=== PATIENT | female | born 1950 | race Caucasian/White ===

== ENCOUNTER 2020-08-27 11:35 | Inpatient (IN) | payer OTHER, MEDICARE ==
[~2020-08-27] VITALS: Ht 167.6 cm; Wt 69.9 kg
[~2020-08-27 11:35] MED LIST: CODE120S2 PO
[2020-08-27 13:01] LABS: BASOPHILS % (AUTO) 0.2 % (0-1); EOSINOPHILS # (AUTO) 0.4 X10'3 (0-0.9); EOSINOPHILS % (AUTO) 2.3 % (0-6); HEMATOCRIT 47.5 % (35.0-45.0); HEMOGLOBIN 15.5 g/dl (12.0-16.0); LYMPHOCYTES # (AUTO) 1.9 X10'3 (1.1-4.8); LYMPHOCYTES % (AUTO) 10.6 % (21-51); MEAN CORPUSCULAR HEMOGLOBIN 29.5 PG (27.0-31.0); MEAN CORPUSCULAR HGB CONC 32.6 g/dL (33.0-36.5); MEAN CORPUSCULAR VOLUME 90.7 FL (78-98); MEAN PLATELET VOLUME 8.4 FL (7.4-10.4); MONOCYTES # (AUTO) 1.3 X10'3 (0-0.9); MONOCYTES % (AUTO) 7.3 % (2-12); NEUTROPHILS % (AUTO) 79.6 % (42-75); PLATELET COUNT 282 X10'3 (140-440); RED BLOOD COUNT 5.24 X10'6 (4.20-5.60); RED CELL DISTRIBUTION WIDTH 14.7 % (11.5-14.5); WHITE BLOOD COUNT 17.6 X10'3 (4.5-11.0)
[2020-08-27 13:22] LABS: ALANINE AMINOTRANSFERASE 49 U/L (12-78); ALBUMIN 3.6 G/DL (3.4-5.0); ALBUMIN/GLOBULIN RATIO 0.9 (1.1-1.5); ALKALINE PHOSPHATASE 118 IU/L (46-116); ANION GAP 8 (8-16); ASPARTATE AMINO TRANSFERASE 32 U/L (10-37); BLOOD UREA NITROGEN 19 MG/DL (7-18); BUN/CREATININE RATIO 17.6 (6.6-38.0); CALCIUM 9.3 MG/DL (8.5-10.1); CHLORIDE 105 MMOL/L (99-107); CREATININE 1.08 MG/DL (0.40-0.90); GLUCOSE 107 MG/DL (70-104); POTASSIUM 4.2 MMOL/L (3.5-5.1); SODIUM 140 MMOL/L (135-145); TOTAL CARBON DIOXIDE 27.1 MMOL/L (24-32); TOTAL PROTEIN 7.5 G/DL (6.4-8.2); eGFR 50 ML/MIN
[2020-08-27] MEDS ORDERED: acetaminophen 325mg tablet PO STA (14:36)
[2020-08-27] MEDS ORDERED: methylPREDNISolone sod succ 125mg/2ml vial IV ONE (14:40)
[2020-08-27] MEDS ORDERED: CefTRIAXone 2gm/D5W 50ml BAG 50 ML IV ONE (14:40)
[2020-08-27] MEDS ORDERED: albuterol 2.5 MG/3 ML nebule CONTNEB PRN (14:40)
[2020-08-27 15:20] LABS: D-DIMER 0.22 MG/L FEU (0-0.50)
[2020-08-27] MEDS ORDERED: azithromycin/NS 500mg/250ml 250 ML IV ONE (16:50)
[2020-08-27] MEDS ORDERED: LEVO50TA8 PO (17:19)
[2020-08-27] MEDS ORDERED: ATOR40TA71 PO (17:19)
[2020-08-27] MEDS ORDERED: LOSA50TA64 PO (17:19)
[2020-08-27] MEDS ORDERED: TIOT4MIS5 PO (17:19)
[2020-08-27] MEDS ORDERED: DULO60CA45 PO (17:19)
[2020-08-27] MEDS ORDERED: MONT10TA21 PO (17:19)
[2020-08-27] MEDS ORDERED: FLUT1AER PO (17:19)
[2020-08-27] MEDS ORDERED: HYDROcodone/acetaminophen 5mg/325mg tablet PO PRN (17:20)
[2020-08-27] MEDS ORDERED: ondansetron/PF 4mg/2ml inj IV PRN (17:20)
[2020-08-27] MEDS ORDERED: mag hydrox/Alum hydrox/simeth 30ml oral suspension PO PRN (17:20)
[2020-08-27] MEDS ORDERED: magnesium hydroxide 30ml (MOM) UD suspension PO PRN (17:20)
[2020-08-27] MEDS ORDERED: acetaminophen 325mg tablet PO PRN ×2 (17:20)
[2020-08-27] MEDS ORDERED: morphine 2 MG/ML inj. syringe IV PRN ×2 (17:20)
--- NOTE | 2020-08-27 18:06 | NUR ---
Patient in room ED 16. I have received report from RAUL Ferreira and had the opportunity to ask questions and assume patient care.
[2020-08-27 19:00] VITALS: BP 144/52
--- NOTE | 2020-08-27 23:37 | NUR ---
PAGER ID: [phone] MESSAGE: [id number] Violetta edward. Pt admitted with possible PNA. Is saline locked w/o abx. Lactic 1.8. Nebulizer treatments at home, none here. Would you like additional orders? RAUL Nunezbusiness development intern [phone]
[2020-08-28] VITALS: BP 148/57
--- NOTE | 2020-08-28 00:16 | NUR ---
PAGER ID: [phone] MESSAGE: [id number] Violetta Munoz. Please call in regards to this patient. Thank you. RAUL Nunezwind farm designer [phone]
[2020-08-28] MEDS: zolpidem 5mg tablet PO PRN ×2 (02:29→20:44)
[2020-08-28] MEDS: ipratropium/albuterol 3ml nebule NEB SCH ×4 (02:40→20:11)
[2020-08-28 02:47] LABS: ALBUMIN 3.2 G/DL (3.4-5.0); ANION GAP 13 (8-16); BLOOD UREA NITROGEN 21 MG/DL (7-18); BUN/CREATININE RATIO 18.9 (6.6-38.0); CHLORIDE 108 MMOL/L (99-107); CREATININE 1.11 MG/DL (0.40-0.90); GLUCOSE 204 MG/DL (70-104); POTASSIUM 4.3 MMOL/L (3.5-5.1); SODIUM 143 MMOL/L (135-145); TOTAL CARBON DIOXIDE 22.5 MMOL/L (24-32); eGFR 48 ML/MIN
[2020-08-28 02:50] LABS: BASOPHILS % (AUTO) 0.1 % (0-1); EOSINOPHILS % (AUTO) 0 % (0-6); HEMATOCRIT 42.7 % (35.0-45.0); HEMOGLOBIN 14.1 g/dl (12.0-16.0); LYMPHOCYTES # (AUTO) 0.7 X10'3 (1.1-4.8); LYMPHOCYTES % (AUTO) 5.3 % (21-51); MEAN CORPUSCULAR HEMOGLOBIN 29.7 PG (27.0-31.0); MEAN CORPUSCULAR HGB CONC 33.1 g/dL (33.0-36.5); MEAN CORPUSCULAR VOLUME 89.7 FL (78-98); MEAN PLATELET VOLUME 8.7 FL (7.4-10.4); MONOCYTES # (AUTO) 0.2 X10'3 (0-0.9); MONOCYTES % (AUTO) 1.8 % (2-12); NEUTROPHILS # (AUTO) 12.5 X10'3 (1.8-7.7); NEUTROPHILS % (AUTO) 92.8 % (42-75); PLATELET COUNT 241 X10'3 (140-440); RED BLOOD COUNT 4.76 X10'6 (4.20-5.60); RED CELL DISTRIBUTION WIDTH 14.7 % (11.5-14.5); WHITE BLOOD COUNT 13.4 X10'3 (4.5-11.0)
--- NOTE | 2020-08-28 06:33 | NUR ---
Problems reprioritized. Patient report given, questions answered & plan of care reviewed with RAUL Vegas.
--- NOTE | 2020-08-28 06:35 | NUR ---
Patient in room [facility] 360. I have received report from Mayra Escoto RN and had the opportunity to ask questions and assume patient care.
[2020-08-28 07:00] VITALS: BP 120/62
[2020-08-28] MEDS: enoxaparin 40mg/0.4ml syringe SUBCUT SCH (07:35)
[2020-08-28] MEDS: CefTRIAXone/D5W-Rocephin 1gm 50 ML IV SCH (07:35)
[2020-08-28] MEDS: atorvastatin 20mg tablet PO SCH (07:36)
[2020-08-28] MEDS: losartan 50mg tablet PO SCH (07:36)
[2020-08-28] MEDS: azithromycin 250mg tablet PO SCH (07:36)
[2020-08-28] MEDS: duloxetine 30mg CAPSULE.DR PO SCH (07:36)
[2020-08-28] MEDS: montelukast 10mg tablet PO SCH (07:37)
[2020-08-28] MEDS: levoTHYROXINE 25mcg tablet PO SCH (07:37)
[2020-08-28] MEDS: budesonide 0.5mg/2ml UD nebule IH SCH ×2 (07:37→20:11)
[2020-08-28] MEDS: methylPREDNISolone sod succ 125mg/2ml vial IV SCH ×2 (07:38→20:36)
[2020-08-28] MEDS ORDERED: non-formulary drug (Tiotropium Bromide (Spiriva Respimat) 2 PUFF) PO SCH (08:00)
[2020-08-28] MEDS ORDERED: non-formulary drug (Fluticasone/Vilanterol (Breo Ellipta 100-25 Mcg INH) 1 PUFF) PO SCH (08:00)
[2020-08-28] MEDS ORDERED: albuterol 2.5 MG/3 ML nebule NEB SCH (08:00)
[2020-08-28 09:28] LABS: ABG BASE EXCESS -2.9 mmol/L (-2.0-2.0); ABG HCO3 21.4 mmol/L (22.0-26.0); ABG OXYGEN SATURATION 95.1 % (94-97); ABG PCO2 (T) 35.9 mmHg (32.0-45.0); ABG PO2 (T) 72.8 mmHg (75.0-100.0); ALLEN'S TEST POSITIVE; FCOHb 0.1 % (0.0-3.9); FLOW 4 L/min; FMetHb 0.4 % (0.0-1.5); FO2Hb 94.6 % (94-97)
--- NOTE | 2020-08-28 09:31 | NUR ---
patient given IS and flutter valve. Rt tmts continue and ABG drawn per Dr Blanchard. . Awaiting sputum sample. patient remains on O2/4L. will continue to monitor.
--- NOTE | 2020-08-28 10:26 | NUR ---
Solumedrol given by primary RN and not Raymon ARAUJO from [facility]. Medication was scanned under SN profile.
[2020-08-28 11:01] VITALS: BP 115/48
--- NOTE | 2020-08-28 16:31 | NUR ---
patient c/o feeling constipated. MOM and prune juice administered will continue to monitor
[2020-08-28 18:00] VITALS: BP 141/79
--- NOTE | 2020-08-28 18:16 | NUR ---
daughter present with patient. No result at this time from "brown alejandro" ie MOM and prune juice. report given to Prudence RN
--- NOTE | 2020-08-28 18:51 | NUR ---
Patient in room [facility] 360. I have received report from RAUL Vegas and had the opportunity to ask questions and assume patient care. Addendum: 08/28/20 at 1852 by Yamile Dotson - Student REYES Amended: Links added.
[2020-08-28] MEDS: lactobacillus rhamnosus 10,000 MMU CELLS/CAPSULE PO SCH (20:35)
[2020-08-29 00:12] VITALS: BP 160/86
[2020-08-29] MEDS: ipratropium/albuterol 3ml nebule NEB SCH ×4 (02:25→20:36)
--- NOTE | 2020-08-29 05:54 | NUR ---
Student documentation: I have reviewed and agree with all interventions, assessments performed and documented by TERENCE STUDENT.
[2020-08-29 06:33] LABS: ALBUMIN 2.9 G/DL (3.4-5.0); ANION GAP 9 (8-16); BASOPHILS % (AUTO) 0 % (0-1); BLOOD UREA NITROGEN 30 MG/DL (7-18); BUN/CREATININE RATIO 30.9 (6.6-38.0); CALCIUM 8.6 MG/DL (8.5-10.1); CHLORIDE 110 MMOL/L (99-107); CREATININE 0.97 MG/DL (0.40-0.90); EOSINOPHILS % (AUTO) 0 % (0-6); GLUCOSE 146 MG/DL (70-104); HEMATOCRIT 38.1 % (35.0-45.0); HEMOGLOBIN 12.5 g/dl (12.0-16.0); LYMPHOCYTES # (AUTO) 0.9 X10'3 (1.1-4.8); LYMPHOCYTES % (AUTO) 5.1 % (21-51); MEAN CORPUSCULAR HEMOGLOBIN 29.3 PG (27.0-31.0); MEAN CORPUSCULAR HGB CONC 32.7 g/dL (33.0-36.5); MEAN CORPUSCULAR VOLUME 89.8 FL (78-98); MEAN PLATELET VOLUME 8.7 FL (7.4-10.4); MONOCYTES # (AUTO) 0.5 X10'3 (0-0.9); MONOCYTES % (AUTO) 2.7 % (2-12); NEUTROPHILS # (AUTO) 17.1 X10'3 (1.8-7.7); NEUTROPHILS % (AUTO) 92.2 % (42-75); PLATELET COUNT 256 X10'3 (140-440); RED BLOOD COUNT 4.25 X10'6 (4.20-5.60); RED CELL DISTRIBUTION WIDTH 14.6 % (11.5-14.5); SODIUM 143 MMOL/L (135-145); TOTAL CARBON DIOXIDE 24.3 MMOL/L (24-32); WHITE BLOOD COUNT 18.5 X10'3 (4.5-11.0); eGFR 56 ML/MIN
[2020-08-29 07:50] VITALS: BP 106/54
[2020-08-29] MEDS: budesonide 0.5mg/2ml UD nebule IH SCH ×2 (08:34→20:36)
[2020-08-29] MEDS: atorvastatin 20mg tablet PO SCH (09:36)
[2020-08-29] MEDS: CefTRIAXone/D5W-Rocephin 1gm 50 ML IV SCH (09:36)
[2020-08-29] MEDS: montelukast 10mg tablet PO SCH (09:37)
[2020-08-29] MEDS: lactobacillus rhamnosus 10,000 MMU CELLS/CAPSULE PO SCH ×2 (09:37→21:04)
[2020-08-29] MEDS: duloxetine 30mg CAPSULE.DR PO SCH (09:37)
[2020-08-29] MEDS: losartan 50mg tablet PO SCH (09:37)
[2020-08-29] MEDS: methylPREDNISolone sod succ 125mg/2ml vial IV SCH ×2 (09:38→21:04)
[2020-08-29] MEDS: azithromycin 250mg tablet PO SCH (09:38)
[2020-08-29] MEDS: enoxaparin 40mg/0.4ml syringe SUBCUT SCH (09:38)
[2020-08-29] MEDS: levoTHYROXINE 25mcg tablet PO SCH (09:56)
[2020-08-29 11:00] VITALS: BP 131/66
[2020-08-29 18:00] VITALS: BP 136/67
--- NOTE | 2020-08-29 18:07 | NUR ---
Problems reprioritized. Patient report given, questions answered & plan of care reviewed with RAUL PERRY.
--- NOTE | 2020-08-29 19:05 | NUR ---
Patient in room [facility] 360. I have received report from RAUL Lind and had the opportunity to ask questions and assume patient care. Addendum: 08/29/20 at 1905 by Yamile Dotson - Student REYES Amended: Links added.
[2020-08-29] MEDS: zolpidem 5mg tablet PO PRN (21:03)
[2020-08-30 00:13] VITALS: BP 128/74
[2020-08-30] MEDS: ipratropium/albuterol 3ml nebule NEB SCH ×3 (02:39→16:21)
--- NOTE | 2020-08-30 05:37 | NUR ---
Student documentation: I have reviewed and agree with all interventions, assessments performed and documented by TERENCE CARTER.
--- NOTE | 2020-08-30 05:37 | NUR ---
Student Medication Administration: For this medication-pass time frame, all medication were reviewed, dispensed, administered and documented per hospital policy by WALLKILLWILL NOBLES.
--- NOTE | 2020-08-30 06:10 | NUR ---
Problems reprioritized. Patient report given, questions answered & plan of care reviewed with RAUL Lind. Addendum: 08/30/20 at 0610 by Yamile Dotson - Steve CHAMBERS Amended: Links added.
--- NOTE | 2020-08-30 06:48 | NUR ---
Patient in room [facility] 360. I have received report from Yamile, student RN & Sara, RN and had the opportunity to ask questions and assume patient care.
[2020-08-30 07:01] LABS: BASOPHILS % (AUTO) 0 % (0-1); EOSINOPHILS % (AUTO) 0 % (0-6); HEMATOCRIT 40.7 % (35.0-45.0); HEMOGLOBIN 13.2 g/dl (12.0-16.0); LYMPHOCYTES # (AUTO) 0.8 X10'3 (1.1-4.8); MEAN CORPUSCULAR HEMOGLOBIN 29.1 PG (27.0-31.0); MEAN CORPUSCULAR HGB CONC 32.3 g/dL (33.0-36.5); MEAN CORPUSCULAR VOLUME 90.1 FL (78-98); MEAN PLATELET VOLUME 8.8 FL (7.4-10.4); MONOCYTES # (AUTO) 0.6 X10'3 (0-0.9); MONOCYTES % (AUTO) 4.3 % (2-12); NEUTROPHILS # (AUTO) 12.2 X10'3 (1.8-7.7); NEUTROPHILS % (AUTO) 89.7 % (42-75); PLATELET COUNT 289 X10'3 (140-440); RED BLOOD COUNT 4.52 X10'6 (4.20-5.60); RED CELL DISTRIBUTION WIDTH 14.6 % (11.5-14.5); WHITE BLOOD COUNT 13.6 X10'3 (4.5-11.0)
[2020-08-30] MEDS: budesonide 0.5mg/2ml UD nebule IH SCH (07:05)
[2020-08-30 07:19] LABS: ANION GAP 11 (8-16); BLOOD UREA NITROGEN 34 MG/DL (7-18); BUN/CREATININE RATIO 36.6 (6.6-38.0); CALCIUM 8.7 MG/DL (8.5-10.1); CHLORIDE 108 MMOL/L (99-107); CREATININE 0.93 MG/DL (0.40-0.90); GLUCOSE 150 MG/DL (70-104); POTASSIUM 4.8 MMOL/L (3.5-5.1); SODIUM 143 MMOL/L (135-145); TOTAL CARBON DIOXIDE 23.8 MMOL/L (24-32); eGFR 59 ML/MIN
[2020-08-30 07:45] VITALS: BP 133/77
[2020-08-30] MEDS: methylPREDNISolone sod succ 125mg/2ml vial IV SCH (08:23)
[2020-08-30] MEDS: atorvastatin 20mg tablet PO SCH (08:23)
[2020-08-30] MEDS: levoTHYROXINE 25mcg tablet PO SCH (08:24)
[2020-08-30] MEDS: lactobacillus rhamnosus 10,000 MMU CELLS/CAPSULE PO SCH (08:24)
[2020-08-30] MEDS: montelukast 10mg tablet PO SCH (08:24)
[2020-08-30] MEDS: duloxetine 30mg CAPSULE.DR PO SCH (08:25)
[2020-08-30] MEDS: azithromycin 250mg tablet PO SCH (08:25)
[2020-08-30] MEDS: losartan 50mg tablet PO SCH (08:37)
[2020-08-30] MEDS: enoxaparin 40mg/0.4ml syringe SUBCUT SCH (08:39)
[2020-08-30] MEDS: CefTRIAXone/D5W-Rocephin 1gm 50 ML IV SCH (08:57)
[2020-08-30 11:00] VITALS: BP 134/88
--- NOTE | 2020-08-30 16:13 | NUR ---
PAGER ID: [phone] MESSAGE: 360B Anastacia JENKINS: PATIENT WOULD LIKE TO DC. SHE HAS BEEN OFF OF O2 FOR A FEW HOURS, AND AFTER AMBULATION SHE DID NOT QUALIFY FOR O2. THANKS! DASHA [phone]
[2020-08-30] MEDS ORDERED: LEVO750T46 PO (16:35)
[2020-08-30] MEDS ORDERED: ALBU8HFA PO (16:35)
--- NOTE | 2020-08-30 17:00 | NUR ---
Student documentation: I have reviewed and agree with all interventions, assessments performed and documented by SN LETICIA. Student Medication Administration: For this medication-pass time frame, all medication were reviewed, dispensed, administered and documented per hospital policy by SN LETICIA.
--- NOTE | 2020-08-30 17:29 | NUR ---
PATIENT STABLE AND APPROPRIATE FOR DISCHARGE HOME. IV REMOVED, ALL BELONGINGS TAKEN FROM ROOM. NEW PRESCRIPTIONS TRANSMITTED TO PREFERRED PHARMACY. PATIENT AMBULATED AND DID NOT MEET HOME OXYGEN REQUIREMENTS. ALL DISCHARGE INSTRUCTIONS AND EDUCATION GIVEN AND REVIEWED WITH PATIENT AND . ALL QUESTIONS ANSWERED.
== END 2020-08-30 17:30 | disposition home or self-care (01) | DRG 193 ==
LOC: ER 11:36 → ED HOLD 17:17 → UNDOADMIN 17:43 → SUR 3N 18:00 → ED HOLD 18:00
PROVIDERS: ADMIT Internal Medicine; ATTEND Internal Medicine
DX: J18.9 Pneumonia, unspecified organism (principal); J96.21 Acute and chronic respiratory failure with hypoxia; J44.0 Chronic obstructive pulmonary disease with (acute) lower respiratory infection; J44.1 Chronic obstructive pulmonary disease with (acute) exacerbation; M81.0 Age-related osteoporosis without current pathological fracture; Z77.22 Contact with and (suspected) exposure to environmental tobacco smoke (acute) (chronic); K21.9 Gastro-esophageal reflux disease without esophagitis; R03.0 Elevated blood-pressure reading, without diagnosis of hypertension; E78.5 Hyperlipidemia, unspecified; E03.9 Hypothyroidism, unspecified; Z82.5 Family history of asthma and other chronic lower respiratory diseases; Z79.899 Other long term (current) drug therapy
CPT/HCPCS: 36415; 36600; 71045; 71250; 80048; 80053; 82803; 83605; 83880; 84145; 84484; 85018; 85025; 85379; 87040; 87081; 94640; 94668; 94760; 96365; 96367; 96375; 99285; A7015; G0378; J0456; J0696; J1650; J2930; J7626